=== PATIENT | female | born 1985 | race Caucasian/White ===

== ENCOUNTER 2024-10-07 13:40 | Outpatient (CLI) | payer SELFPAY ==
[2024-10-07 15:04] LABS: #Basophils 0.09 10x3/uL (0.0-0.2); #Eosinophils 0.31 10x3/uL (0.0-0.5); #Monocytes 0.42 10x3/uL (0.0-1.1); #Neutrophils 3.93 10x3/uL (1.5-8.4); %Basophils 1.2 % (0.0-2.0); %Eosinophils 4.1 % (0.0-6.0); %Lymphocytes 36.7 % (18.0-47.0); %Monocytes 5.5 % (0.0-10.0); Hematocrit 40.3 % (34.9-44.5); Hemoglobin 13.6 g/dL (12.0-15.5); Mean Corpuscular HGB CONC 33.7 g/dL (32.0-36.0); Mean Corpuscular Hemoglobin 30.8 pg (27.0-33.0); Mean Corpuscular Volume 91.2 fL (81.6-98.3); Platelet Count 351 10x3/uL (150-450); RBC Distribution Width 12.8 % (11.5-14.5); Red Blood Cell (RBC) Count 4.42 10x6/uL (3.90-5.03); White Blood Cell (WBC) Count 7.6 10x3/uL (3.5-10.5)
[2024-10-07 15:27] LABS: ALT (SGPT) 95 U/L (8-55); AST (SGOT) 70 U/L (5-34); Albumin 3.8 g/dL (3.5-5.0); Alkaline Phosphatase 238 U/L (40-110); Anion Gap 19 mmol/L (10-20); BUN (Urea Nitrogen) 7 mg/dL (7.0-18.7); Bilirubin, Direct 0.3 mg/dL (0.1-0.3); Bilirubin, Total 0.7 mg/dL (0.2-1.2); Calc. Creatinine Clearance 0 mL/min (70-130); Calcium 9.6 mg/dL (7.8-10.44); Carbon Dioxide 21 mmol/L (22-29); Chloride 95 mmol/L (98-107); Estimated GFR 73; Potassium 5.1 mmol/L (3.5-5.1); Protein, Total 7.7 g/dL (6.0-8.3); Sodium 130 mmol/L (136-145)
[2024-10-07 15:42] LABS: Glucose 550 mg/dL (70-105)
== END 2024-10-07 13:41 | disposition home or self-care (01) ==
LOC: CSHLAB 13:40
PROVIDERS: ATTEND Surgery
DX: Z01.818 Encounter for other preprocedural examination (principal); K80.20 Calculus of gallbladder without cholecystitis without obstruction; R94.31 Abnormal electrocardiogram [ECG] [EKG]
CPT/HCPCS: 80048; 80076; 85025; 93005; 93010